=== PATIENT | male | born 1970 | race Caucasian/White ===

== ENCOUNTER → 2020-07-12 | Outpatient (CLI) | payer OTHER | LOC: CAT 09:32 | PROVIDERS: ATTEND General Practice | DX: Z13.6 Encounter for screening for cardiovascular disorders (principal); I25.10 Atherosclerotic heart disease of native coronary artery without angina pectoris; E78.00 Pure hypercholesterolemia, unspecified ==

== ENCOUNTER → 2020-08-20 | Outpatient (CLI) | payer BC, OTHER | LOC: SJCVCIMAG 09:22 | PROVIDERS: ATTEND Internal Medicine Cardiovascular Disease | DX: I34.0 Nonrheumatic mitral (valve) insufficiency (principal); R00.1 Bradycardia, unspecified; R07.89 Other chest pain; R06.00 Dyspnea, unspecified; R00.2 Palpitations; Z86.16 Personal history of COVID-19 ==